=== PATIENT | female | born 1995 | race Caucasian/White ===

== ENCOUNTER 2017-10-01 04:03 | Emergency (ER) | payer OTHER | END 2017-10-01 05:25 | disposition home or self-care (01) | LOC: ER 04:03 | DX: H66.91 Otitis media, unspecified, right ear (principal); Z88.0 Allergy status to penicillin | CPT/HCPCS: 99283 ==

== ENCOUNTER 2019-01-03 02:09 | Emergency (ER) | payer OTHER ==
[~2019-01-03] VITALS: Ht 165.1 cm; Wt 86.2 kg
[~2019-01-03 02:09] MED LIST: AMOX1TAB61 PO
[2019-01-03 02:19] VITALS: BP 130/71
--- NOTE | 2019-01-03 02:52 | PHYS DOC ---
Past Medical History Past Medical History: No Pertinent History Past Surgical History: No Surgical History Additional Information: Nonsmoker Alcohol Use: None Drug Use: None Adult General Chief Complaint Chief Complaint: FOOT INJURY PAIN HPI HPI 23 y/o female presents with sudden left foot pain which started at 1600 this evening. 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 Patient reports inability to walk due to stabbing pain. Denies known trauma. Denies rash. Patient reports she feels as if her foot is swollen. Denies . Review of Systems Review of Systems Constitutional: Denies fever or chills Eyes: Denies redness or eye pain HENT: Denies nasal congestion or sore throat Respiratory: Denies cough or shortness of breath Cardiovascular: Denies chest pain or palpitations GI: Denies abdominal pain, nausea, or vomiting : Denies dysuria or hematuria Musculoskeletal: Denies back pain; reports left foot pain Integument: Denies rash or skin lesions Neurologic: Denies headache, focal weakness or sensory changes Complete systems were reviewed and found to be within normal limits, except as documented in this note. Current Medications Current Medications Current Medications Medications (Trade) Dose Ordered Sig/Caprice Start Time Stop Time Status Last Admin Dose Admin Dexamethasone (Decadron) 10 mg 1X ONCE 01/03/19 03:00 01/03/19 03:01 01/03/19 02:45 10 MG Ketorolac Tromethamine (Toradol 30mg Vial) 30 mg 1X ONCE 01/03/19 03:00 01/03/19 03:01 01/03/19 02:44 30 MG Allergies Allergies Allergies Coded Allergies Type Severity Reaction Last Updated Verified Penicillins Allergy Intermediate 10/01/17 Yes Physical Exam Physical Exam Constitutional: Well developed, well nourished, no acute distress, non-toxic appearance HENT: Normocephalic, atraumatic, oropharynx moist Eyes: Conjunctiva normal, no discharge Neck: Normal range of motion, no tenderness, supple Cardiovascular: Left foot DP and PT +2, CR < 2 sec Lungs & Thorax: No respiratory distress, Skin: Warm, dry, no erythema, no rash Extremities: Tenderness to palpation of left 1st and 2nd metatarsals, no deformity Neurologic: Alert and oriented X 3, speech normal Psychologic: Affect normal, judgement normal Current Patient Data Vital Signs Vital Signs Date Time Temp Pulse Resp B/P (MAP) Pulse Ox O2 Delivery O2 Flow Rate FiO2 01/03/19 02:19 97.8 91 20 130/71 (90) 98 Room Air 97.8 EKG EKG [] Radiology/Procedures Radiology/Procedures LEFT FOOT XR 3 VIEWS (preliminary interpretation by ED physician): No acute fracture/dislocation Course & Med Decision Making Course & Med Decision Making Pertinent Imaging studies reviewed. (See chart for details) Patient presents with left foot pain without known trauma. No deformity noted. Neurovascularly intact. Pain primarily to first and second metatarsal. Ice applied. Pain addressed. X-ray obtained without acute fracture or dislocation. Patrice bandage, postop shoe, and crutches provided with training.Patient stable for discharge with outpatient follow-up with PCP/orthopedics. Orthopedic referral provided. Discussed findings and plan with patient and family, who acknowledge understanding and agreement. Dragon Disclaimer Dragon Disclaimer This electronic medical record was generated, in whole or in part, using a voice recognition dictation system. Splinting Splinting : Location: left foot Pre-Made Type: Patrice bandage and Post op shoe Pre-Proc Neuro Vasc Exam: normal Post-Proc Neuro Vasc Exam: normal, unchanged from pre-exam Departure Departure Impression: Primary Impression: Sprain of foot, left Disposition: 01 HOME, SELF-CARE Condition: STABLE Referrals: UNKNOWN PCP NAME (PCP) JOANNA NORIEGA MD Patient Instructions: Crutch Use, [id number], Foot Sprain Additional Instructions: Use over the counter Ibuprofen and Tylenol. ICE area 20 min on and then off for next 20 min as needed for next few days. Problem Qualifiers Primary Impression: Sprain of foot, left Encounter type: initial encounter Qualified Codes: S93.602A - Unspecified sprain of left foot, initial encounter ELIZABETH NOGUEIRA DO Jan 03, 2019 02:52
[2019-01-03] MEDS ORDERED: DEXAMETHASONE 4 MG TABLET PO ONE (03:00)
[2019-01-03] MEDS ORDERED: KETOROLAC 30 MG/ML VIAL. IM ONE (03:00)
--- NOTE | 2019-01-03 05:19 | RAD ---
Left foot 3 views. HISTORY: Pain 3 views were taken of the left foot. There is not evidence of an acute fracture or osseous abnormality. IMPRESSION: 1. Negative left foot. Electronically signed by: Buddy Seymour MD (01/03/2019 5:15 AM) [facility] [place] [id number]
== END 2019-01-03 03:11 | disposition home or self-care (01) ==
LOC: ER 02:09
DX: S93.602A Unspecified sprain of left foot, initial encounter (principal); Z88.0 Allergy status to penicillin; X58.XXXA Exposure to other specified factors, initial encounter; Y93.89 Activity, other specified; Y92.89 Other specified places as the place of occurrence of the external cause; Y99.8 Other external cause status
CPT/HCPCS: 73630; 96372; 99284; J1885; J8540